=== PATIENT | female | born 1940 | race Caucasian/White ===

== ENCOUNTER 2016-06-30 06:45 | Inpatient (IN) | payer MEDICARE ==
[~2016-06-30] VITALS: Ht 162.6 cm; Wt 93.3 kg
[2016-06-30] VITALS (13 sets, daily range): BP systolic 100–182; BP diastolic 58–112; PULSE 88–144; RESP 16–45; O2SAT 90–96
[~2016-06-30 06:45] MED LIST: ALBU2.5V4 INHALATION; ALBU8.5H2 INHALATION; ASPI-973 PO; ATOR20TA65 PO; ATRINH INH; BECL8.7A6 IH; CALC-140 PO; DOCO1CAP3 PO; LORA0.5T PO; METO25TA6 PO; MULT-1065 PO; NITR0.4T SL
[2016-06-30] MEDS ORDERED: 0.9% Sodium Chloride 1,000 ML IV ONE ×2 (06:49→13:35)
[2016-06-30] MEDS ORDERED: Magnesium Sulf 2 Gm/50mL Water 2 GM in IV Premix 1 EACH IV ONE (06:50)
[2016-06-30] MEDS ORDERED: Azithromycin Inj 500 MG in Dextrose 5% w/Vial Mate 250 ML IV ONE (06:50)
[2016-06-30] MEDS ORDERED: cefTRIAXone Inj 2,000 MG in Dextrose 5% Minibag Plus 50 ML IV ONE (06:50)
[2016-06-30] MEDS ORDERED: MethylprednisoLONE Sodium Succinate 62.5 mg/mL 2 mL Inj IVPUSH ONE (06:50)
[2016-06-30] MEDS ORDERED: Albuterol-Ipratropium 3 mL Inhalation Solution NEB ONE (06:50)
--- NOTE | 2016-06-30 07:05 | ED.REPORT ---
HPI-General Illness Date of Service Jun 30, 2016 ED Provider: Chandrika Lovelace MD The patient is a 76 year old female w/ a hx of HTN, MO, CAD s/p stenting, asthma , and severe COPD who presents to the ED due to severe dyspnea about 30 minutes ago just prior to arrival. Pt noticed her breathing was worse last night and she called her son on the phone this morning with an increase in severity of symptoms. She ran out of her inhaler last night and insurance wouldn't let her refill it yet. She saw her PCP last week who restarted her on steroids because she was getting worse. She was in UC on Thursday (2 days ago) with worsening symptoms and was given doxycycline. She didn't tell any doctors that she was out of her inhalers as she assumed she wouldn't be able to get new ones. She is currently on Prednisone and Doxycycline. Pt describes that it is, "super hard to breathe and there is pressure across my chest." Pt was admitted w/ similar symptoms 06/09/15 - 06/11/15. Nursing Notes Stated Complaint: DIFFICULTY BREATHING/POSSIBLE COPD Chief Complaint: Respiratory Complaints Nursing Notes Reviewed: Yes Allergies: Coded Allergies: lisinopril (Verified Allergy, Intermediate, Rash,Itching,, 06/30/16) Uncoded Allergies: Bee stings (Allergy, Intermediate, itching/swelling at site, 06/10/15) tomatoes (Allergy, Mild, rash, 06/10/15) Cannot eat raw tomatoes but can eat them cooked without any problem. A HEART MEDICINE (Allergy, Unknown, rash, 06/09/15) Scheduled Albuterol Neb Soln (Albuterol Neb Soln) 2.5 Mg/3 Ml Vial.neb 2.5 MG INHALATION Q4H Aspirin (Aspirin) 81 Mg Tablet 81 MG PO DAILY Atorvastatin Calcium (Atorvastatin Calcium) 20 Mg Tablet 20 MG PO QPM Beclomethasone Dipropionate (Qvar) 8.7 Gm Aer.w.adap 80 MCG IH BID Calcium Carbonate/Vitamin D3 (Calcium + Vitamin D Tablet) 1 Each Tablet 1 EACH PO BID Docosahexanoic Acid/Epa (Fish Oil Concentrate Softgel) 1 Each Capsule 1 EACH PO BID Ipratropium [place] (Atrovent HFA) 200 Puff/12.9 Gm Inhaler 2 PUFF INH QID Metoprolol Tartrate (Metoprolol Tartrate) 25 Mg Tablet 25 MG PO BID Multivits-Min/Iron/FA/Lutein (Centrum Silver Women Tablet) 8 Mg Iron-400 Mcg- 300 Mcg Tablet 1 EACH PO DAILY Scheduled PRN Albuterol HFA (Proair HFA) 8.5 Gm Hfa.aer.ad 2 PUFFS INHALATION Q2H PRN PRN For Shortness of Breath Lorazepam (Lorazepam) 0.5 Mg Tablet 0.5 MG PO TID PRN PRN For Anxiety Use as needed for anxiety due to shortness of breath Nitroglycerin SL (Nitrostat) 0.4 Mg Tab.subl 0.4 MG SL Q5MIN PRN PRN For Chest Pain If chest pain is not relieved after 3rd dose, call 911 for immediate medical attention. General Time Seen by MD: 06:46 Chief Complaint Other (shortness of breath) Hx Obtained From: Patient, Son Arrived By: Walk-in Sudden in Onset?: Yes Onset Occurred: Just prior to arrival Symptom Duration: Since onset Severity: Current: No pain currently Recent Healthcare: Recent doctor visit, Recent hospitalization Similar Sx Previous: Yes Past Medical History Past Medical History Notes: Dr. Flores Past Medical History Reports: Asthma, COPD, Coronary artery disease Past Surgical History cardiac stenting Reports: Cholecystectomy Smoking History Former Smoker Social History Drug Use: Denies drug use Ambulatory Status Independent Review of Systems Full Review of Systems Respiratory: Reports: Shortness of breath Cardiovascular: Reports: Chest pain Complete sys rev & neg: except as marked. Physical Exam Vital Signs Vital Signs Date Time Temp Pulse Resp B/P Pulse Ox O2 Delivery O2 Flow Rate FiO2 06/30/16 10:02 100 25 131/74 92 Nasal Cannula 2 06/30/16 08:28 102 20 102/96 96 Nasal Cannula 2 06/30/16 07:51 111 21 92 Nasal Cannula 2 06/30/16 07:27 127 35 159/83 93 Nasal Cannula 2 06/30/16 06:53 36.3 144 45 182/112 90 Nasal Cannula 2 Initial VS: Reviewed Head / Eyes: Atraumatic, Normocephalic, PERRL ENT: Mucous membranes moist, Conjunctiva normal, No scleral icterus Neck: Supple, Non-tender, Full range of motion Abdomen / GI: Soft, Non-tender, No guarding, No rebound, No distention Back: No CVA tenderness Skin: Warm, Dry, No cyanosis Neurologic: Alert, Oriented, Nonfocal Psychiatric: Mood/affect normal, Behavior normal, Normal thought content General/Constitutional: Awake pale but overall profusing well sitting upright and tripoding Resp Distress / Stridor: Positive: Resp distress severe one to two word sentences minimal air movement throughout all lung [place] Cardiovascular: No gallop, No murmurs, No rubs Heart Rate / Rhythm: Positive: Tachycardia Lower Extremity / Pelvis / MS: No edema Interpretation & Diagnostics Interpretation & Diagnostics: ANGIOGRAPHY CT IMPRESSION: 1. Groundglass subpleural density at the posterior left upper lobe is likely atelectatic but indeterminate. 2. Interstitial infiltrates in the right upper lobe, middle lobe and lower lobe suspect for pneumonia. Correlate clinically. 3. Borderline mediastinal and right hilar lymph nodes are likely reactive. 4. 5 mm superior segment left lower lobe pulmonary nodule is indeterminant. Followup noncontrast CT chest in 6-12 months is advised. 5. Exam is negative for pulmonary embolic disease. Dictated by: Danie Yao M.D. on 06/30/2016 at 9:36 Approved by: Danie Yao M.D. on 06/30/2016 at 9:45 Lab Results Interpretation Result Diagram: 06/30/16 0655 06/30/16 0655 Test 06/30/16 06:55 06/30/16 08:50 White Blood Count 29.9th/mm3 (3.8-10.1) Red Blood Count 4.83mil/mm3 (3.90-5.20) Hemoglobin 14.7g/dL (12.0-15.6) Hematocrit 45.8% (35.0-46.0) Mean Corpuscular Volume 94.8fL (81-100) Mean Corpuscular Hemoglobin 30.4pg (27.0-35.0) Mean Corpuscular Hemoglobin Concent 32.1% (32.0-37.0) Red Cell Distribution Width 13.7% (12.3-15.4) Platelet Count 426bil/L (150-400) Neutrophils (%) (Auto) 82.3% (40-74) Lymphocytes (%) (Auto) 9.2% (14-46) Monocytes (%) (Auto) 6.5% (4-12) Eosinophils (%) (Auto) 1.3% (0-5) Basophils (%) (Auto) 0.1% (0-3) D-Dimer 1.0mg/L (<0.50) Sodium Level 138mEq/L (134-144) Potassium Level 4.8mEq/L (3.5-5.2) Chloride Level 97mEq/L (97-108) Carbon Dioxide Level 28mmol/L (18-29) Blood Urea Nitrogen 17mg/dL (8-27) Creatinine 0.86mg/dL (0.57-1.00) Estimat Glomerular Filtration Rate 92mL/min (>59) Glucose Level 124mg/dL (60-99) Lactic Acid Level 2.6mmol/L (0.4-2.0) Calcium Level 9.3mg/dL (8.5-10.1) Total Bilirubin 0.5mg/dL (0.0-1.2) Aspartate Amino Transf (AST/SGOT) 14U/L (0-50) Alanine Aminotransferase (ALT/SGPT) 20U/L (0-32) Alkaline Phosphatase 78U/L (25-165) Troponin T 0.010ug/L (0.0-0.011) Pro-B-Type Natriuretic Peptide 198.0pg/mL (0-738) Total Protein 7.1g/dL (6.4-8.4) Albumin 4.0g/dL (3.4-5.0) Procalcitonin 0.04ng/mL (0.00-0.08) Urine Color Straw (YELLOW) Urine Appearance Hazy (CLEAR,HAZY) Urine pH 7.5 (5.0-8.0) Urine Specific [place] 1.005 (1.003-1.035) Urine Protein Negativemg/dL (NEG,TRACE) Urine Glucose (UA) Negativemg/dL (NEGATIVE) Urine Ketones Negativemg/dL (NEGATIVE) Urine Occult Blood Trace (NEGATIVE) Urine Nitrite Negative (NEGATIVE) Urine Bilirubin Negative (NEGATIVE) Urine Urobilinogen Normalmg/dL (NORMAL) Urine Leukocyte Esterase Negative (NEGATIVE) Urine RBC 0-2/hpf (0-2) Urine WBC 0-5/hpf (0-5) Urine Epithelial Cells Occasional/hpf (NONE-MOD) Urine Crystals None seen (NONE SEEN) Urine Bacteria Few/hpf (NONE-FEW) Urine Hyaline Casts None/lpf (NONE) Urine Granular Casts None seen (NONE SEEN) Urine Waxy Casts None seen (NONE SEEN) Urine Red Blood Cell Casts None seen (NONE SEEN) Urine White Blood Cell Casts None seen (NONE SEEN) Urine Mucus None seen (None Seen) Urine Trichomonas None seen (NONE SEEN) Urine Yeast None (NONE SEEN) Urinalysis Comment None Urine Culture Reflexed Not indicated Lab Results Interpretation: BLOOD GAS REPORT: pH....7.435 pCO2....46 cHCO3....30.0 cBase....5.3 ECG Interpretation ECG Interpretation: copmlete axis shift from 06/20 was at -17 and now at 68 Time: 07:29 Interpreted by: ED physician Normal ECG Interpretation: No acute ischemic changes Rhythm / Conduction: Tachycardia (129) X-Ray Chest Interpretation Chest Xray Interpretation: IMPRESSION: Mild interstitial prominence. Dictated by: Jeff Johnson RRA Interpreted: Nidhi Messer MD on 06/30/2016 at 9:19 Transcribed by: DOUG on 06/30/2016 at 9:20 View: Portable Interpretation / Wet Read by: Interpret - Radiologist Re-Eval/Medical Decision Med Decision/Clinical Course Presents in acute respiratory distress and does respond nicely to initial meds include steroids. Antibiotics were initially started for community acquired pneumonia. Additional history was then gathered it turns that she has recently been admitted to the hospital was discharged home from there saw her primary care physician and steroids were continued then saw urgent care and doxycycline was added all of her symptoms continue to worsen. I believe part of this may be due to inappropriate use of her inhaled medications, she is not interested all in using a spacer long discussion regarding necessity for this. Was also finding her nebulized albuterol was not helping. Labs returned with a significantly elevated white count modest left shift at home and was not significantly high. With the recent steroids that may certainly be contributing to the leukocytosis. Additional possibilities were entertained in light of the fact that this is now her fourth medical system encounter for similar complaints not improving possibility of pulmonary embolus was entertained. Mildly elevated d-dimer. CT scan was obtained. No evidence of pulmonary embolism. Strong suggestion for developing pneumonia. Care is reviewed with the hospitalist at 10:15. He is available in the department to see and evaluate her. We will expand antibiotic coverage for hospital-acquired pneumonia by adding Zosyn and vancomycin. On recheck patient is doing significantly better at this point Time of Eval: 07:11 Patient Status: Condition unchanged Re-Evaluation/Progress Note: ABG is done. Reviewed hx with patient. She was seen in 2 days ago, where she was given doxycline. She didn't inform any doctors that she was out of her inhalers as she assumed she wouldn't be able to get any new ones. Time of Eval: 07:27 Patient Status: Condition improved, Mild relief Re-Evaluation/Progress Note: Pt is laughing and 4 to 5 word sentences after nebulizer treatment. Time of Eval: 07:41 Patient Status: Condition improved Re-Evaluation/Progress Note: Breathing is much improved. Pt has Ventolin inhaler at home and is able to fill that. She is not able to afford the other inhalers. [facility] and clarify prescriptions and dosages for pt. She had used her nebulizer at home and it had not been effective. She's had her nebulizer for over a year. Reviewed proper nebulizer usage with patient. Encourages pt to try using spacer. Time of Eval: 09:55 Patient Status: Condition improved Re-Evaluation/Progress Note: Lungs have scattered wheeze. Much better air movement. Will admit for further evaluation. Counseled Regarding: Diagnosis, Lab results, Need for admission Discharge & Departure Primary Impression: COPD with acute exacerbation Additional Impressions: Leukocytosis Leukocytosis type: unspecified Qualified Code: D72.829 - Elevated white blood cell count, unspecified Respiratory distress Pneumonia Pneumonia type: due to unspecified organism Laterality: unspecified laterality Lung location: unspecified part of lung Qualified Code: B99.9 - Unspecified infectious disease Ruled Out: Non-STEMI (non-ST elevated myocardial infarction), Pulmonary embolism Disposition: ADMITTED TO HOSPITAL Discharge Condition All VS Reviewed: Yes Condition: Stable Referrals: Poonam Flores MD (PCP) Crit Care Except Billable Proc Time Spent: 30-74 minutes Services Performed: Patient management by me, Time spent at bedside, Reviewing test results, Reviewing imaging, Discussing patient care, Documentation in record, Time with fam/surrogate Scribe Attestation Portion of this note were transcribed by James Curtis. I, Dr. Lovelace, personally performed the history, physical exam, and medical decision-making: I reviewed and confirmed the accuracy for the information in the transcribed note. Signed by: joanna Crowley, 06/30/16 0800 copies to: Poonam Flores MD, Shawna L MD Jun 30, 2016 07:05 JAMES CURTIS Jun 30, 2016 07:30
[2016-06-30 07:13] LABS: BASOPHILS % (AUTO) 0.1 % (0-3); EOSINOPHILS % (AUTO) 1.3 % (0-5); MONOCYTES % (AUTO) 6.5 % (4-12); Mean Corpuscular Hemoglobin 30.4 pg (27.0-35.0); Mean Corpuscular Volume 94.8 fL (81-100); NEUTROPHILS % (AUTO) 82.3 % (40-74); Platelet Count 426 bil/L (150-400)
--- NOTE | 2016-06-30 07:16 | ABG ---
DateTimeAnalyzed 07:11:00 -_ pH ____7.538 - 7.350 7.450 pCO2 ___35.1__ -mmHg 35.0 45.0 pO2 108 -mmHg 69.0 116 HCO3- ___29.7__ -mmol/L 22.0 26.0 ABE ____7.2__ -mmol/L -2.0 2.0 tHb ___13.5__ -g/dL O2Hb ___98.6__ -% COHb ____0.7__ -% MetHb ____0.4__ -% sO2 ___99.7__ -% FIO2 ___44.0__ -% Drawn By jmw - B 750 -mmHg tO2 ___18.8__ -Vol%
--- NOTE | 2016-06-30 07:31 | ABG ---
DateTimeAnalyzed 07:24:00 -_ pH ____7.435 - pCO2 ___45.5__ -mmHg pO2 ___95.9__ -mmHg HCO3- ___30.0__ -mmol/L ABE ____5.3__ -mmol/L tHb ___14.3__ -g/dL O2Hb ___95.7__ -% COHb ____0.9__ -% MetHb ____1.0__ -% sO2 ___97.6__ -% FIO2 ___28.0__ -% Drawn By jmw - Date/Time Notified____ 07:30:00 -_ Liter_Flow ____2.0__ -L/min Oxygen Device 1 __CANNULA - Notified By JMW - Notified Whom DR LAURSEN - B 750 -mmHg tO2 ___19.3__ -Vol% OrderingPhysicianInitials sl - Kiko test N/A -
[2016-06-30 07:51] LABS: TROPONIN T 0.01 ug/L (0.0-0.011)
--- NOTE | 2016-06-30 09:20 | DRSVH ---
PROCEDURE: X-RAY CHEST ONE VIEW, PORTABLE ([id number]) INDICATIONS: ACUTE DYPSNEA TECHNIQUE: One view of the chest was acquired. COMPARISON: [facility], CR, XR CHEST 2VW, 06/21/2016, 12:02. [facility], CR , XR CHEST 1VW (PORTABLE), 06/09/2015, 18:20. FINDINGS: Surgical changes and devices: None. Lungs and pleura: No pleural effusions or pneumothorax. Lungs are clear, and interstitium is promin ent. Mediastinum: Mediastinal contours appear normal. Heart size is normal. Bones and chest wall: No suspicious bony lesions. Overlying soft tissues appear unremarkable. IMPRESSION: Mild interstitial prominence. Dictated by: Jeff Johnson RRA Interpreted: Nidhi Messer MD on 06/30/2016 at 9:19 Transcribed by: DOUG on 06/30/2016 at 9:20 Approved by: Nidhi Messer MD, PhD on 06/30/2016 at 11:47
[2016-06-30 09:22] LABS: APPEARANCE,URINE HAZY (CLEAR,HAZY); COLOR,URINE STRAW (YELLOW); OCCULT BLOOD,URINE TRACE (NEGATIVE); PH,URINE 7.5 (5.0-8.0); UROBILINOGEN,URINE NORMAL (NORMAL)
--- NOTE | 2016-06-30 09:46 | DRSVH ---
PROCEDURE: CT ANGIO CHEST PULMONARY EMBOLISM ([id number]) INDICATIONS: dyspnea, elevated Ddimer TECHNIQUE: After the administration of intravenous contrast, 2 mm thick sections acquired from the pulmonary api mikala to the posterior costophrenic angles. 3-dimensional maximum intensity projection (MIP) coronal a nd sagittal reformats were then acquired through the thorax. For radiation dose reduction, the follo wing was used: automated exposure control, adjustment of mA and/or kV according to patient size. COMPARISON: Chest 06/30/2016 FINDINGS: Image quality: Excellent. Pulmonary arteries: Pulmonary arteries are normal in size, and demonstrate no intraluminal filling d efects to suggest central pulmonary embolism. Lungs and pleura: There is groundglass opacity in the posterior left upper lobe, bordering on the fis sure. Interstitial infiltrate/atelectasis is present in the posterior segment right upper lobe, base of the right middle lobe and throughout the right lower lobe. There is a 5 mm pulmonary nodule in the superior segment of the left lower lobe, series 7/image 11. Mediastinum: Heart size is normal, without pericardial effusion. There are borderline 9-10 mm short diameter subcarinal and right hilar lymph nodes. Thoracic aorta is normal in caliber and enhancement . Esophagus is normal in caliber, without hiatal hernia. Bones and chest wall: No suspicious bony lesions. Ribs and thoracic spine appear intact throughout. Thyroid gland appears normal. No axillary or supraclavicular adenopathy. Abdomen: Visualized upper abdominal solid organs appear normal in the early arterial phase of enhanc ement. IMPRESSION: 1. Groundglass subpleural density at the posterior left upper lobe is likely atelectatic but indeterm inate. 2. Interstitial infiltrates in the right upper lobe, middle lobe and lower lobe suspect for pneumonia . Correlate clinically. 3. Borderline mediastinal and right hilar lymph nodes are likely reactive. 4. 5 mm superior segment left lower lobe pulmonary nodule is indeterminant. Followup noncontrast CT c hest in 6-12 months is advised. 5. Exam is negative for pulmonary embolic disease. Dictated by: Danie Yao M.D. on 06/30/2016 at 9:36 Approved by: Danie Yao M.D. on 06/30/2016 at 9:45
[2016-06-30] MEDS ORDERED: Piperacillin-Tazo 3.375 Gm Inj 3.375 GM in Dextrose 5% Minibag Plus 50 ML IV ONE (10:15)
[2016-06-30] MEDS ORDERED: 0.9% Sodium Chloride 1,000 ML IV SCH (10:16)
[2016-06-30] MEDS ORDERED: Ondansetron 2 mg/mL 2 mL Inj IVPUSH PRN (10:20)
[2016-06-30] MEDS ORDERED: Alum-Mag Hydrox-Simeth 30 mL Suspension PO PRN (10:20)
[2016-06-30] MEDS ORDERED: Vancomycin Dose per Pharmacist XX ONE (10:20)
[2016-06-30] MEDS ORDERED: Polyethylene Glycol (PEG) 17 Gm Powder PO PRN (10:20)
--- NOTE | 2016-06-30 10:49 | PCM.HPMED ---
Subjective Date of Service Jun 30, 2016 Primary Provider: Admitting Physician: Primary Care Physician: Poonam Flores MD Attending Physician: Admit Status: From the Emergency Department, Full Admit Chief Complaint: Cough, Shortness of Breath History of Present Illness: Patient is a 76 year old female wiht a past medical history of Coronary Artery Disease, Essential Hypertension, Myocardial Infarction, Tobacco Use Disorder, Hyperlipidemia, and COPD who presents to the ER at [facility] today complaining of shortness of breath and cough. Pt states her symptoms have been present for a week now. Pt states her symptoms began with a cough which has progressively worsened. Pt states her cough is mildly productive of yellow colored sputum. She states she has been significantly short of breath today, since waking up from sleep. Pt was seen over the weekend in Urgent Care and was started on Prednisone and Doxycycline. She states since starting these medications she feels worse. Pt states she has not been able to use her inhaler for the last 2 days, as she ran out and has not been able to get a refill. Pt does endorse intermittent tactile fever and chills. She denies nausea, vomiting, and diarrhea. Pt states she does have some chest pain with her cough and seems to be worsened by deep breathing. Pt has no other complaints or concerns at this time. Review of Systems: All systems reviewed and are negative except for what has already been mentioned in the HPI. Allergies Coded Allergies: lisinopril (Verified Allergy, Intermediate, Rash,Itching,, 06/30/16) Uncoded Allergies: Bee stings (Allergy, Intermediate, itching/swelling at site, 06/10/15) tomatoes (Allergy, Mild, rash, 06/10/15) Cannot eat raw tomatoes but can eat them cooked without any problem. A HEART MEDICINE (Allergy, Unknown, rash, 06/09/15) Home Medications 1. Albuterol 2. Duo-Nebs 3. Metoprolol 4. Aspirin 5. Atorvastatin 6. Multivitamin 7. Qvar PMH 1. Myocardial Infarction 2. Essential Hypertension 3. Coronary Artery Disease 4. COPD 5. Hyperlipidemia 6. Tobacco Use Disorder 7. Chronic Respiratory Failure Surgical History 1. Coronary Stenting 2. Cholecystectomy Family History Mother of an AL in her 70s Father of cancer in his 70s Social History Hx Alcohol Use: No Hx Substance Use: No Hx Tobacco Use: Yes Smoking Status: Current Every Day Smoker Exam Vital Signs Vital Sign - Last Date Time Temp Pulse Resp B/P Pulse Ox O2 Delivery O2 Flow Rate FiO2 06/30/16 10:02 100 25 131/74 92 Nasal Cannula 2 06/30/16 06:53 36.3 Exam GEN: NAD, Pt laying comfortably in bed HEENT: AT/NC, PERRLA, EOMI, MM moist CARDIAC: RRR, No M/R/G PULM: Coarse breath sounds bilaterally, decreased breath sounds at right lung base, and wheezing throughout bilateral lungs diffusely ABD: Soft, NT, ND, Positive BS in all quadrants EXT: No C/C/E, No calve tenderness bilaterally NEURO: Alert and oriented x3; Following all commands Lab and Diagnostics Result Diagram: 06/30/1665406/30/16654 X-Rays, CTs and MRIs CT ANGIO CHEST PULMONARY EMBOLISM INDICATIONS: dyspnea, elevated Ddimer TECHNIQUE: After the administration of intravenous contrast, 2 mm thick sections acquired from the pulmonary apices to the posterior costophrenic angles. 3-dimensional maximum intensity projection (MIP) coronal and sagittal reformats were then acquired through the thorax. For radiation dose reduction, the following was used: automated exposure control, adjustment of mA and/or kV according to patient size. COMPARISON: Chest 06/30/2016 FINDINGS: Image quality: Excellent. Pulmonary arteries: Pulmonary arteries are normal in size, and demonstrate no intraluminal filling defects to suggest central pulmonary embolism. Lungs and pleura: There is groundglass opacity in the posterior left upper lobe , bordering on the fissure. Interstitial infiltrate/atelectasis is present in the posterior segment right upper lobe, base of the right middle lobe and throughout the right lower lobe. There is a 5 mm pulmonary nodule in the superior segment of the left lower lobe, series 7/image 11. Mediastinum: Heart size is normal, without pericardial effusion. There are borderline 9-10 mm short diameter subcarinal and right hilar lymph nodes. Thoracic aorta is normal in caliber and enhancement. Esophagus is normal in caliber, without hiatal hernia. Bones and chest wall: No suspicious bony lesions. Ribs and thoracic spine appear intact throughout. Thyroid gland appears normal. No axillary or supraclavicular adenopathy. Abdomen: Visualized upper abdominal solid organs appear normal in the early arterial phase of enhancement. IMPRESSION: 1. Groundglass subpleural density at the posterior left upper lobe is likely atelectatic but indeterminate. 2. Interstitial infiltrates in the right upper lobe, middle lobe and lower lobe suspect for pneumonia. Correlate clinically. 3. Borderline mediastinal and right hilar lymph nodes are likely reactive. 4. 5 mm superior segment left lower lobe pulmonary nodule is indeterminant. Followup noncontrast CT chest in 6-12 months is advised. 5. Exam is negative for pulmonary embolic disease. Assessment & Plan Patient is a 76 year old female with a past medical history of Myocardial Infarction, CAD, Essential Hypertension, Hyperlipidemia, COPD, Tobacco Use Disorder, and Chronic Respiratory Failure who is admitted to hospital with Sepsis, Community Acquired Pneumonia, Acute Exacerbation of COPD, and Acute on Chronic Respiratory Failure. 1. Sepsis - As evidenced by severe leukocytosis, lactic acidosis, tachycardia, and known locus of infection - Admit to Progressive Care Unit - Blood cultures x2 drawn in the ER - Check lactic acid q 2 hours x3 - Start IV NS at 125 mL/hour now - Hold home BP medications for now, and monitor BP closely - Start IV Rocephin and Azithromycin, as pt has pneumonia on CT - Telemetry monitoring 2. Pneumonia, Community Acquired - Present on admission - CT of chest confirms infiltrates throughout right lung - Blood cultures x2 drawn in ER - IV Rocephin and Azithromycin - Pt was on PO Doxycycline for the last 2 days as an outpatient - Check urine Strep Pneumoniae Ag - Check urine Legionella Ag - Check viral PCR now - Check Procalcitonin now - Check CRP now - Repeat CBC with diff in AM - Supplemental O2 to keep SpO2 greater than 92% - Breathing treatments PRN 3. COPD, Acute Exacerbation - Secondary to #2 and running out of inhalers at home - Start IV Solu-Medrol 125 mg q 6 hours - Supplemental O2 to keep SpO2 greater than 92% - Duo-Neb breathing treatments q 6 hours 4. Acute on Chronic Respiratory Failure - Pt is normally on supplemental O2 at home at 2 L/min - Pt is requiring 5 L/min at present - Continue breathing treatments, per #3 - Continue supplemental O2 to keep SpO2 greater than 92% - Monitor closely, as pt may require BiPAP - ABG in ER reveals pt is well compensated at present 5. Essential Hypertension - BP is low at present - Will hold home Metoprolol for now given pts sepsis and lactic acidosis - Monitor BP closely 6. Hyperlipidemia - Continue home statin therapy once medication reconciliation complete 7. Coronary Artery Disease - Pt is status post coronary stenting - Continue daily Aspirin - Hold beta lo for now given #1 8. Tobacco Use Disorder - Pt counseled to quit smoking FULL CODE, per discussion with patient at bedside 40 minutes critical care time spent managing pts acute Sepsis, Pneumonia, and Acute on Chronic Respiratory Failure Cezar Hansen MD Jun 30, 2016 10:49
[2016-06-30] MEDS ORDERED: PRE10 PO ×2 (11:01)
[2016-06-30] MEDS ORDERED: DOXY100C2 PO (11:01)
[2016-06-30 12:21] LABS: TROPONIN T 0.01 ug/L (0.0-0.011)
[2016-06-30 12:31] LABS: Magnesium 2.5 mg/dL (1.6-2.6); Phosphorus 2.5 mg/dL (2.5-4.9)
[2016-06-30] MEDS: cefTRIAXone Inj 2,000 MG in Dextrose 5% Minibag Plus 50 ML IV SCH (12:54)
[2016-06-30] MEDS: 0.9% Sodium Chloride 1,000 ML IV SCH (13:03)
[2016-06-30] MEDS ORDERED: ALBU18HF INH (14:30)
[2016-06-30] MEDS ORDERED: ATOR40TA69 PO (14:30)
[2016-06-30] MEDS ORDERED: DIPH25CA6 PO (14:30)
[2016-06-30] MEDS: MethylprednisoLONE Sodium Succinate 62.5 mg/mL 2 mL Inj IVPUSH SCH ×2 (15:38→20:54)
[2016-06-30] MEDS: Sodium Chloride LOK Flush 10 mL Syringe IVFLUSH SCH (16:27)
[2016-06-30] MEDS ORDERED: Piperacillin-Tazo 3.375 Gm Inj 3.375 GM in Dextrose 5% Minibag Plus 50 ML IV SCH (16:30)
[2016-06-30] MEDS: Albuterol-Ipratropium 3 mL Inhalation Solution NEB SCH (16:52)
--- NOTE | 2016-06-30 18:18 | NUR ---
Arrived to Unit Pt arrived to [facility]CC room 2001 at ~1200. Pt A&Ox3, denied pain, VSS on 2L O2 via nasal cannula. Pt's lactic acid trended up to 4.0, ordered lab draw per MD instructions, most recent lactic acid 2.1, Pt on NS at 125mL/Hr after receiving 1L bolus of NS upon arriving to the floor. Pt reported breathing to be much improved since arrival to ED this am.
[2016-06-30] MEDS ORDERED: Famotidine Inj 20 MG in IV Premix 1 EACH IV SCH (20:30)
[2016-07-01] VITALS (13 sets, daily range): BP systolic 117–168; BP diastolic 66–85; PULSE 74–115; RESP 18–24; O2SAT 89–96
[2016-07-01] MEDS: Sodium Chloride LOK Flush 10 mL Syringe IVFLUSH SCH ×3 (00:11→16:56)
[2016-07-01] MEDS: 0.9% Sodium Chloride 1,000 ML IV SCH ×4 (00:19→19:25)
[2016-07-01] MEDS: Albuterol-Ipratropium 3 mL Inhalation Solution NEB SCH ×4 (01:45→20:26)
[2016-07-01 02:50] LABS: BASOPHILS % (AUTO) 0.1 % (0-3); EOSINOPHILS % (AUTO) 0 % (0-5); MONOCYTES % (AUTO) 1.4 % (4-12); Mean Corpuscular Hemoglobin 29.9 pg (27.0-35.0); Mean Corpuscular Volume 95.8 fL (81-100); NEUTROPHILS % (AUTO) 93.3 % (40-74); Platelet Count 317 bil/L (150-400)
[2016-07-01] MEDS: MethylprednisoLONE Sodium Succinate 62.5 mg/mL 2 mL Inj IVPUSH SCH ×4 (02:55→23:45)
--- NOTE | 2016-07-01 03:00 | NUR ---
ACTIVITY/SOB Assisted pt to BSC. Pt tolerated well w/ slight increased work of breathing on exertion. Pt denies chest px. Reminded pt to continue to use call light for needs. Call light w/in reach, bed low and locked.
--- NOTE | 2016-07-01 08:10 | PCM.PNMED ---
Subjective Date of Service Jul 01, 2016 Subjective She is feeling better than yesterday. Less dyspnea. She still has a dry cough and audible wheezing with her cough. Her cough is nonproductive. No chest pain. No nausea or diarrhea. No abdominal pain. She does feel somewhat weak. She notes that she is down to 2 cigarettes a day. She lives in [place] with her son and his fiance. Exam Vital Signs Vital Sign - Last Date Time Temp Pulse Resp B/P Pulse Ox O2 Delivery O2 Flow Rate FiO2 07/01/16 03:30 Supplement Oxygen 07/01/16 02:50 36.5 81 18 128/66 89 2.00 Intake and Output 06/30/16 06/30/16 07/01/16 Cumulative From/Thru 15:00 23:00 07:00 06/30/16 06:53 - 07/01/16 05:15 Intake Total 1000 ml 2531 ml 1895 ml 5426 ml Output Total 1700 ml 1550 ml 3250 ml Balance 1000 ml 831 ml 345 ml 2176 ml Intake Oral 697 ml 600 ml 1297 ml IV Total 1000 ml 1834 ml 1295 ml 4129 ml Output Urine Total 1700 ml 1550 ml 3250 ml # Bowel Movements 0 0 Exam Third oriented 3, no distress. Fluent speech Anicteric sclera No facial droop. Neck supple. Lungs with 2 out of 4 breath sounds, prolonged expiratory phase. She has had a reactive cough with exhalation. Heart is regular without murmur gallop or rub Abdomen is distended but nontender. Extremity free edema. Good radial pulses. Good pedal pulses. Skin is free of rash or lesions. IVs and Medications Medications Reviewed: Medications were reviewed in detail Lab and Diagnostics Result Diagram: 07/01/16 0239 07/01/16 0239 X-Rays, CTs and MRIs CT ANGIO CHEST PULMONARY EMBOLISM INDICATIONS: dyspnea, elevated Ddimer TECHNIQUE: After the administration of intravenous contrast, 2 mm thick sections acquired from the pulmonary apices to the posterior costophrenic angles. 3-dimensional maximum intensity projection (MIP) coronal and sagittal reformats were then acquired through the thorax. For radiation dose reduction, the following was used: automated exposure control, adjustment of mA and/or kV according to patient size. COMPARISON: Chest 06/30/2016 FINDINGS: Image quality: Excellent. Pulmonary arteries: Pulmonary arteries are normal in size, and demonstrate no intraluminal filling defects to suggest central pulmonary embolism. Lungs and pleura: There is groundglass opacity in the posterior left upper lobe , bordering on the fissure. Interstitial infiltrate/atelectasis is present in the posterior segment right upper lobe, base of the right middle lobe and throughout the right lower lobe. There is a 5 mm pulmonary nodule in the superior segment of the left lower lobe, series 7/image 11. Mediastinum: Heart size is normal, without pericardial effusion. There are borderline 9-10 mm short diameter subcarinal and right hilar lymph nodes. Thoracic aorta is normal in caliber and enhancement. Esophagus is normal in caliber, without hiatal hernia. Bones and chest wall: No suspicious bony lesions. Ribs and thoracic spine appear intact throughout. Thyroid gland appears normal. No axillary or supraclavicular adenopathy. Abdomen: Visualized upper abdominal solid organs appear normal in the early arterial phase of enhancement. IMPRESSION: 1. Groundglass subpleural density at the posterior left upper lobe is likely atelectatic but indeterminate. 2. Interstitial infiltrates in the right upper lobe, middle lobe and lower lobe suspect for pneumonia. Correlate clinically. 3. Borderline mediastinal and right hilar lymph nodes are likely reactive. 4. 5 mm superior segment left lower lobe pulmonary nodule is indeterminant. Followup noncontrast CT chest in 6-12 months is advised. 5. Exam is negative for pulmonary embolic disease. Assessment & Plan Patient is a 76 year old female with a past medical history of Myocardial Infarction, CAD, Essential Hypertension, Hyperlipidemia, COPD, Tobacco Use Disorder, and Chronic Respiratory Failure who is admitted to hospital with Sepsis, Community Acquired Pneumonia, Acute Exacerbation of COPD, and Acute on Chronic Respiratory Failure.(Text from admitting physician) 1. Sepsis, POA. Resolved. - As evidenced by severe leukocytosis, lactic acidosis, tachycardia, and known locus of infection - Start IV Rocephin and Azithromycin, as pt has pneumonia on CT - Telemetry monitoring, continue fluid resuscitation. 2. Pneumonia, Community Acquired, POA. Improving. -New antibiotics as outlined above. 3. COPD, Acute Exacerbation. POA. Improving. -Stress importance of smoking cessation. -Continue IV Solu-Medrol 60 mg q 8 hours - Supplemental O2 to keep SpO2 greater than 92% - Duo-Neb breathing treatments q 6 hours 4. Acute on Chronic Respiratory Failure, POA. - Pt is normally on supplemental O2 at home at 2 L/min - Pt is requiring 5 L/min at present - Continue breathing treatments, per #3 - Continue supplemental O2 to keep SpO2 greater than 92% 5. Essential Hypertension, POA. - BP is low at present - Will hold home Metoprolol for now given pts sepsis and lactic acidosis - Monitor BP closely 6. Hyperlipidemia, POA., POA. - Continue home statin therapy once medication reconciliation complete 7. Coronary Artery Disease - Pt is status post coronary stenting - Continue daily Aspirin - Hold beta lo for now given #1 8. Tobacco Use Disorder, POA. - Pt counseled to quit smoking FULL CODE, per discussion with patient at bedside 11 AM addendum. The patient had a flushing feeling when azithromycin was infusing. She had left arm pain but no obvious infiltration. She also had chest pressure which is very limited. No skin rash or other symptoms. We stopped the azithromycin and will no longer decubitus drug with this as a potential allergy. Pain Evaluation: Adequate Pain Control Resuscitation Status: CPR: Attempt Resuscitation Time spent 25 minutes Kiko Alvarez MD Jul 01, 2016 08:10
[2016-07-01] MEDS ORDERED: levoFLOXacin Inj 750 MG in IV Premix 1 EACH IV SCH (08:30)
[2016-07-01] MEDS ORDERED: Azithromycin Inj 500 MG in Dextrose 5% w/Vial Mate 250 ML IV SCH (08:30)
[2016-07-01] MEDS: cefTRIAXone Inj 2,000 MG in Dextrose 5% Minibag Plus 50 ML IV SCH (10:58)
--- NOTE | 2016-07-01 14:51 | NUR ---
Social Work Note: Initial Assessment Data& Assessment: EMR reviewed. SW met with pt at bedside to discuss discharge planning, SW role explained. Nadine Stewart is a 76 year old female admitted on 06/30/2016 for pneumonia and COPD exacerbation. Pt has Medicare part A & B insurance coverage and sees Poonam Flores MD for primary care. Pt lives in [place] with her son and is independent at baseline with all ADL's. Pt son does help pt with chores around the home though. Pt son also transports her to appointments. Pt does not use any DME for ambulation assistance. She denies any HH or SNF hx. Pt also denies any LTC insurance or VA benefits. Pt was provided with [facility] paperwork to review and complete when possible. Pt denies any other needs at this time. SW to continue to follow if any other needs arise. Plan: Anticipated discharge home via POV when medically ready. Pt denies any other needs at this time. SW to continue to follow if any other needs arise. MAYTE Quinonez Addendum: 07/01/16 at 1600 by MARISSA VILLANUEVA Amended: Links added.
--- NOTE | 2016-07-01 18:35 | NUR ---
IV/Azithromycin Pt's AC IV site leaking this am which was D/C'd. A new IV site started in left forearm, IV steroid push given without issue, and IV azithromycin dose hung and running. ~30 min later, Pt called RN into room to report pain that traveled up arm originating in new IV site up into armpit/chest, IV infusion immediately stopped and MD notified who came and assessed Pt, instructed by MD to withhold remainder of Azithromycin dose. IV therapy notified to come and assess Pt's IV site. Per IV therapy, Pt reported pain to decrease as they flushed Pt's IV and that the IV site is ok to use. Pt hooked up to IVF which ran without issue for remainder of shift. Pt also received IV ceftriaxone through site without issue. Azithromycin added to Pt's adverse reactions in electronic chart and azithromycin D/C'd by .
[2016-07-02] MEDS: Sodium Chloride LOK Flush 10 mL Syringe IVFLUSH SCH ×2 (00:30→10:05)
[2016-07-02] MEDS: 0.9% Sodium Chloride 1,000 ML IV SCH (02:16)
[2016-07-02 02:46] VITALS: PULSE 72; RESP 18; O2SAT 94
[2016-07-02] MEDS: Albuterol-Ipratropium 3 mL Inhalation Solution NEB SCH ×2 (02:46→08:03)
[2016-07-02 02:57] VITALS: BP 136/68; PULSE 71; RESP 22; O2SAT 95
--- NOTE | 2016-07-02 04:36 | NUR ---
Fluids Pt fluids DC'd as pt was up 3kg since admission and was positive 2L on I&O. Pt able to eat and drink just fine Lactic acid WNL. No c/o SOB or CP. VSS and Tele SR.
[2016-07-02 07:59] VITALS: BP 150/78; PULSE 75; RESP 22; O2SAT 95
--- NOTE | 2016-07-02 08:11 | PCM.DIMED ---
Discharge Instructions Date of Service Jul 02, 2016 Dates of Hospitalization Jun 30, 2016 at 11:33 Discharge Diagnosis Discharge Diagnosis 1. Possible pneumonia 2. COPD exacerbation 3. Acute on chronic respiratory failure, hypoxic 4. Sepsis attended admission, with SIRS criteria met and probable pneumonia as focus of infection. Resolved. 5. Hypertension 6. Tobacco dependence, ongoing with counseling provided. Diet Heart Healthy Activity Limited until seen by PCP Call your provider Fever or Chills, Shortness of breath Patient Instructions Follow-up Provider: Poonam Flores MD Follow-up with PCP in: 1 week Kiko Alvarez MD Jul 02, 2016 08:11
[2016-07-02] MEDS ORDERED: PRE20 PO (08:13)
[2016-07-02] MEDS ORDERED: IPRA3AMP IH (08:13)
[2016-07-02 08:24] VITALS: PULSE 85; RESP 20; O2SAT 94
--- NOTE | 2016-07-02 09:00 | NUR ---
Ready to go Met pt during change of shift this am. Pt stated she is ready to go home. Pt up in bed. laughing and cooperative with care.
[2016-07-02] MEDS: MethylprednisoLONE Sodium Succinate 62.5 mg/mL 2 mL Inj IVPUSH SCH (10:05)
--- NOTE | 2016-07-02 10:22 | NUR ---
Social Work Note: Discharge Data& Assessment: EMR reviewed. Per pt is medically ready for discharge. Nadine Stewart is a 76 year old female admitted on 06/30/2016 for pneumonia and COPD Exacerbation. Per pt is medically improved and ready for discharge. GWENDOLYN met with pt at bedside to confirm discharge plan and assess for any unmet needs. Pt requires transportation home has her son does not have access to his car today. Pt is enrolled with [employer] through [employer]. SW called [facility] and they were able to schedule pt for 11:10am this morning. GWENDOLYN notified pt and pt RN. Pt denies any other needs. No other discharge needs identified. Plan: Per pt is medically ready to discharge home via [facility] [employer] [facility] [facility] at 11:10am. Pt denies any other needs. No other discharge needs identified. MAYTE Quinonez
--- NOTE | 2016-07-02 11:04 | NUR ---
Discharge Patient discharged at approximately 1055 to home via cab. Patient given discharge packet with educational material, next dose to be taken for all medications clearly written and dated, followup appointment scheduled, new prescriptions included. IV DC'd with catheter intact, gauze and paper tape applied due to skin sensitivity per pt to tape. Tele DC'd desk monitor notified. Pt home O2 out, called RT for replacement, pt left with full tank of O2. Pt left with all belongings including home medications on hold with pharmacy. Pt escorted by [employer] in wheelchair to door awaiting cab.
--- NOTE | 2016-07-02 11:41 | PCM.DC.MED ---
Discharge Summary Date of Service Jul 02, 2016 Dates of Hospitalization Date of Hospital Admission Jun 30, 2016 at 11:33 Date of Discharge: Jul 02, 2016 Providers: Admitting Physician: Cezar Hansen MD Primary Care Physician: Poonam Flores MD Attending Physician: Cezar Hansen MD Diagnosis at Time of Discharge Diagnosis at Time of Discharge 1. Possible pneumonia 2. COPD exacerbation 3. Acute on chronic respiratory failure, hypoxic 4. Sepsis attended admission, with SIRS criteria met and probable pneumonia as focus of infection. Resolved. 5. Hypertension 6. Tobacco dependence, ongoing with counseling provided. 7. Incidental finding of pulmonary nodule, recommended follow-up CT in 6-12 months. Consultations None Procedures XRay, CTs & MRIs CT ANGIO CHEST PULMONARY EMBOLISM INDICATIONS: dyspnea, elevated Ddimer TECHNIQUE: After the administration of intravenous contrast, 2 mm thick sections acquired from the pulmonary apices to the posterior costophrenic angles. 3-dimensional maximum intensity projection (MIP) coronal and sagittal reformats were then acquired through the thorax. For radiation dose reduction, the following was used: automated exposure control, adjustment of mA and/or kV according to patient size. COMPARISON: Chest 06/30/2016 FINDINGS: Image quality: Excellent. Pulmonary arteries: Pulmonary arteries are normal in size, and demonstrate no intraluminal filling defects to suggest central pulmonary embolism. Lungs and pleura: There is groundglass opacity in the posterior left upper lobe , bordering on the fissure. Interstitial infiltrate/atelectasis is present in the posterior segment right upper lobe, base of the right middle lobe and throughout the right lower lobe. There is a 5 mm pulmonary nodule in the superior segment of the left lower lobe, series 7/image 11. Mediastinum: Heart size is normal, without pericardial effusion. There are borderline 9-10 mm short diameter subcarinal and right hilar lymph nodes. Thoracic aorta is normal in caliber and enhancement. Esophagus is normal in caliber, without hiatal hernia. Bones and chest wall: No suspicious bony lesions. Ribs and thoracic spine appear intact throughout. Thyroid gland appears normal. No axillary or supraclavicular adenopathy. Abdomen: Visualized upper abdominal solid organs appear normal in the early arterial phase of enhancement. IMPRESSION: 1. Groundglass subpleural density at the posterior left upper lobe is likely atelectatic but indeterminate. 2. Interstitial infiltrates in the right upper lobe, middle lobe and lower lobe suspect for pneumonia. Correlate clinically. 3. Borderline mediastinal and right hilar lymph nodes are likely reactive. 4. 5 mm superior segment left lower lobe pulmonary nodule is indeterminant. Followup noncontrast CT chest in 6-12 months is advised. 5. Exam is negative for pulmonary embolic disease. ECG 12 Lead Sinus tachycardia, no acute changes Brief History Patient is a 76 year old female wiht a past medical history of Coronary Artery Disease, Essential Hypertension, Myocardial Infarction, Tobacco Use Disorder, Hyperlipidemia, and COPD who presents to the ER at [facility] today complaining of shortness of breath and cough. Pt states her symptoms have been present for a week now. Pt states her symptoms began with a cough which has progressively worsened. Pt states her cough is mildly productive of yellow colored sputum. She states she has been significantly short of breath today, since waking up from sleep. Pt was seen over the weekend in Urgent Care and was started on Prednisone and Doxycycline. She states since starting these medications she feels worse. Pt states she has not been able to use her inhaler for the last 2 days, as she ran out and has not been able to get a refill. Pt does endorse intermittent tactile fever and chills. She denies nausea, vomiting, and diarrhea. Pt states she does have some chest pain with her cough and seems to be worsened by deep breathing. Pt has no other complaints or concerns at this time. Hospital Course Patient is a 76 year old female with a past medical history of Myocardial Infarction, CAD, Essential Hypertension, Hyperlipidemia, COPD, Tobacco Use Disorder, and Chronic Respiratory Failure who is admitted to hospital with Sepsis, Community Acquired Pneumonia, Acute Exacerbation of COPD, and Acute on Chronic Respiratory Failure.(Text from admitting physician) 1. Sepsis, POA. Resolved. - As evidenced by severe leukocytosis, lactic acidosis, tachycardia, and known locus of infection - Start IV Rocephin and Azithromycin, as pt has pneumonia on CT - Telemetry monitoring, continue fluid resuscitation. 2. Pneumonia, Community Acquired, POA. Improving. -New antibiotics as outlined above. 3. COPD, Acute Exacerbation. POA. Improving. -Stress importance of smoking cessation. -Continue IV Solu-Medrol 60 mg q 8 hours - Supplemental O2 to keep SpO2 greater than 92% - Duo-Neb breathing treatments q 6 hours 4. Acute on Chronic Respiratory Failure, POA. - Pt is normally on supplemental O2 at home at 2 L/min - Pt is requiring 5 L/min at present - Continue breathing treatments, per #3 - Continue supplemental O2 to keep SpO2 greater than 92% 5. Essential Hypertension, POA. - BP is low at present - Will hold home Metoprolol for now given pts sepsis and lactic acidosis - Monitor BP closely 6. Hyperlipidemia, POA., POA. - Continue home statin therapy once medication reconciliation complete 7. Coronary Artery Disease - Pt is status post coronary stenting - Continue daily Aspirin - Hold beta lo for now given #1 8. Tobacco Use Disorder, POA. - Pt counseled to quit smoking FULL CODE, per discussion with patient at bedside 11 AM addendum. The patient had a flushing feeling when azithromycin was infusing. She had left arm pain but no obvious infiltration. She also had chest pressure which is very limited. No skin rash or other symptoms. We stopped the azithromycin and will no longer decubitus drug with this as a potential allergy. Hospital course. This patient was admitted for presumed pneumonia and started on IV antibiotics. She had no fever and a mild leukocytosis which improved. She had evidence of acute on chronic respiratory failure. She is supported with supplemental oxygen. She had a possible reaction to azithromycin the day prior to discharge so this was stopped. She was given IV steroids for COPD exacerbation and bronchodilators and improved. Her blood pressure was stable. He did discharge she felt that her near baseline and requested discharge home. She was afebrile. All microbiologic testing was negative. She had CT proven pulmonary infiltrates consistent with pneumonia. She notes that she has remainder of the course of antibiotics, doxycycline at home. She agrees to close follow-up. Exam Vital Signs (Last) Date Time Temp Pulse Resp B/P Pulse Ox O2 Delivery O2 Flow Rate FiO2 07/02/16 09:00 Supplement Oxygen 07/02/16 08:24 85 20 94 1.50 07/02/16 07:59 36.5 150/78 Exam Alert oriented 3, fluent speech. 2 L nasal cannula. Anicteric sclera Neck supple. Lungs with children for breast sounds pulling expiratory phase but no focal findings Heart is regular without murmur Abdomen soft Extremities are free of edema good pedal pulses. Test 06/30/16 06:55 06/30/16 08:45 06/30/16 08:50 06/30/16 11:40 D-Dimer 1.0mg/L (<0.50) Total Bilirubin 0.5mg/dL (0.0-1.2) Aspartate Amino Transf (AST/SGOT) 14U/L (0-50) Alanine Aminotransferase (ALT/SGPT) 20U/L (0-32) Alkaline Phosphatase 78U/L (25-165) C-Reactive Protein 0.9mg/dL (0.0-0.5) Pro-B-Type Natriuretic Peptide 198.0pg/mL (0-738) Total Protein 7.1g/dL (6.4-8.4) Albumin 4.0g/dL (3.4-5.0) Urine Legionella pneumophilia Ag Negative (Negative) Urine Color Straw (YELLOW) Urine Appearance Hazy (CLEAR,HAZY) Urine pH 7.5 (5.0-8.0) Urine Specific [place] 1.005 (1.003-1.035) Urine Protein Negativemg/dL (NEG,TRACE) Urine Glucose (UA) Negativemg/dL (NEGATIVE) Urine Ketones Negativemg/dL (NEGATIVE) Urine Occult Blood Trace (NEGATIVE) Urine Nitrite Negative (NEGATIVE) Urine Bilirubin Negative (NEGATIVE) Urine Urobilinogen Normalmg/dL (NORMAL) Urine Leukocyte Esterase Negative (NEGATIVE) Urine RBC 0-2/hpf (0-2) Urine WBC 0-5/hpf (0-5) Urine Epithelial Cells Occasional/hpf (NONE-MOD) Urine Crystals None seen (NONE SEEN) Urine Bacteria Few/hpf (NONE-FEW) Urine Hyaline Casts None/lpf (NONE) Urine Granular Casts None seen (NONE SEEN) Urine Waxy Casts None seen (NONE SEEN) Urine Red Blood Cell Casts None seen (NONE SEEN) Urine White Blood Cell Casts None seen (NONE SEEN) Urine Mucus None seen (None Seen) Urine Trichomonas None seen (NONE SEEN) Urine Yeast None (NONE SEEN) Urinalysis Comment None Urine Culture Reflexed Not indicated Phosphorus Level 2.5mg/dL (2.5-4.9) Magnesium Level 2.5mg/dL (1.6-2.6) Troponin T 0.010ug/L (0.0-0.011) Test 07/01/16 02:39 White Blood Count 18.8th/mm3 (3.8-10.1) Red Blood Count 4.05mil/mm3 (3.90-5.20) Hemoglobin 12.1g/dL (12.0-15.6) Hematocrit 38.8% (35.0-46.0) Mean Corpuscular Volume 95.8fL (81-100) Mean Corpuscular Hemoglobin 29.9pg (27.0-35.0) Mean Corpuscular Hemoglobin Concent 31.2% (32.0-37.0) Red Cell Distribution Width 13.6% (12.3-15.4) Platelet Count 317bil/L (150-400) Neutrophils (%) (Auto) 93.3% (40-74) Lymphocytes (%) (Auto) 4.6% (14-46) Monocytes (%) (Auto) 1.4% (4-12) Eosinophils (%) (Auto) 0% (0-5) Basophils (%) (Auto) 0.1% (0-3) Sodium Level 141mEq/L (134-144) Potassium Level 5.2mEq/L (3.5-5.2) Chloride Level 105mEq/L (97-108) Carbon Dioxide Level 25mmol/L (18-29) Blood Urea Nitrogen 18mg/dL (8-27) Creatinine 0.67mg/dL (0.57-1.00) Estimat Glomerular Filtration Rate 123mL/min (>59) Glucose Level 173mg/dL (60-99) Lactic Acid Level 2.0mmol/L (0.4-2.0) Calcium Level 8.6mg/dL (8.5-10.1) Procalcitonin 0.02ng/mL (0.00-0.08) Microbiology Results Negative blood cultures, strep pneumonia antigen, Legionella. Negative adult respiratory PCR panel. Discharge Medications Discharge Medications Aspirin (Aspirin) 81 Mg Tablet 81 MG PO DAILY (Reported) Atorvastatin Calcium (Atorvastatin Calcium) 40 Mg Tablet 40 MG PO HS (Reported) Calcium Carbonate/Vitamin D3 (Calcium + Vitamin D Tablet) 1 Each Tablet 1 EACH PO BID (Reported) Doxycycline Hyclate (Doxycycline Hyclate) 100 Mg Capsule 100 MG PO bid x 10 days (Reported) Ipratropium/Albuterol Sulfate (Iprat-Albut 0.5-3(2.5) mg/3 mL Inhalant Soln) 3 Ml Ampul.neb 3 ML IH Q6 Prescribed by: KIKO SWENSON MD Metoprolol Tartrate (Metoprolol Tartrate) 25 Mg Tablet 25 MG PO BID (Reported) Multivits-Min/Iron/FA/Lutein (Centrum Silver Women Tablet) 8 Mg Iron-400 Mcg- 300 Mcg Tablet 1 EACH PO DAILY (Reported) Prednisone (PredniSONE) 10 Mg Tablet 10 MG PO daily x 3 days (Reported) Prednisone (PredniSONE) 20 Mg Tablet 40 MG PO DAILY Prescribed by: KIKO SWENSON MD As needed Albuterol Neb Soln (Albuterol Neb Soln) 2.5 Mg/3 Ml Vial.neb 2.5 MG INHALATION q6 hours PRN PRN For Wheezing (Reported) Albuterol Sulfate (Ventolin HFA Inhaler) 200 Puff/18 Gm Inhaler 2 PUFFS INH q4- 6 hours PRN PRN For Shortness of Breath (Reported) Nitroglycerin SL (Nitrostat) 0.4 Mg Tab.subl 0.4 MG SL Q5MIN PRN PRN For Chest Pain (Reported) If chest pain is not relieved after 3rd dose, call 911 for immediate medical attention. diphenhydrAMINE HCl (Benadryl) 25 Mg Capsule 25-50 MG PO q4-6 hours PRN PRN allergies (Reported) Followup Plan Disposition: Home, with family Discharge Diet: Heart Healthy Discharge Activity: Limited until seen by PCP Follow-up Provider: Poonam Flores MD Follow-up with PCP in: 1 week Time spent 45 minutes Kiko Swenson MD Jul 02, 2016 11:41
== END 2016-07-02 11:00 | disposition home or self-care (01) | DRG 871 ==
LOC: SED 06:45 → PCC 11:33
PROVIDERS: ADMIT Family Medicine; ATTEND Family Medicine
PROC: 4A033R1 Measurement of Arterial Saturation, Peripheral, Percutaneous Approach (ICD-10-PCS; principal; 2016-06-30)
DX: A41.9 Sepsis, unspecified organism (principal); J18.9 Pneumonia, unspecified organism; J96.21 Acute and chronic respiratory failure with hypoxia; J44.1 Chronic obstructive pulmonary disease with (acute) exacerbation; E87.2 Acidosis; T36.3X5A Adverse effect of macrolides, initial encounter; I10 Essential (primary) hypertension; I25.10 Atherosclerotic heart disease of native coronary artery without angina pectoris; J45.909 Unspecified asthma, uncomplicated; E78.5 Hyperlipidemia, unspecified; F17.210 Nicotine dependence, cigarettes, uncomplicated